=== PATIENT | male | born 1990 | race African-American/Black ===

== ENCOUNTER 2020-02-29 16:16 | Emergency (ER) | payer SELFPAY ==
[~2020-02-29] VITALS: Ht 185.4 cm; Wt 82.0 kg
[2020-02-29 16:22] VITALS: BP 125/77
== END 2020-02-29 18:37 | disposition left against medical advice (07) ==
LOC: ER 16:16
DX: Z53.21 Procedure and treatment not carried out due to patient leaving prior to being seen by health care provider (principal)